=== PATIENT | female | born 2000 | race African-American/Black ===

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

== ENCOUNTER → 2022-11-27 11:32 | Outpatient (BNVA) | payer OTHER, SELFPAY | PROVIDERS: PCP Hospitalist; Visit Provider Internal Medicine | DX: Z77.098 Contact with and (suspected) exposure to other hazardous, chiefly nonmedicinal, chemicals (principal); T26.11XA Burn of cornea and conjunctival sac, right eye, initial encounter | CPT/HCPCS: 99204 ==